=== PATIENT | male | born 1965 | race Native Hawaiian/Other Pacific Islander ===

== ENCOUNTER 2022-01-05 12:55 | Outpatient (CLI) | payer OTHER | END 2022-01-05 19:36 | disposition home or self-care (01) | LOC: RAD 12:55 → EDBD 13:00 → RAD 13:00 | PROVIDERS: ATTEND Family Medicine | DX: M54.2 Cervicalgia (principal); M54.51 Vertebrogenic low back pain; M54.6 Pain in thoracic spine; R20.2 Paresthesia of skin; M25.561 Pain in right knee; M25.562 Pain in left knee; Z87.39 Personal history of other diseases of the musculoskeletal system and connective tissue; Z09 Encounter for follow-up examination after completed treatment for conditions other than malignant neoplasm ==